=== PATIENT | female | born 1990 | race Caucasian/White ===

== ENCOUNTER 2023-08-29 00:24 | Emergency (ER) | payer OTHER, SELFPAY ==
[2023-08-29 00:25] VITALS: BP 147/99
[2023-08-29 01:15] VITALS: BMI 36.1
[2023-08-29 01:26] VITALS: BP 128/90
[2023-08-29 01:47] LABS: % Basophils 0.7 % (0-2); % Eosinophils 3.1 % (0-6); % Immature Granulocytes 0.4 % (0-0.5); % Monocytes 7.8 % (1.7-9.3); Absolute Basophils 0.1 10^3/uL (0-0.2); Absolute Eosinophils 0.4 10^3/uL (0-0.7); Absolute Immature Granulocytes 0.1 10^3/uL (0-0.05); Absolute Lymphocytes 3.3 10^3/uL (1.2-3.4); Absolute Monocytes 0.9 10^3/uL (0.1-0.6); Absolute Neutrophils 7.1 10^3/uL (1.4-6.5); Hematocrit 36.7 % (37.0-47.0); Hemoglobin 12.5 g/dL (12.0-16.0); Mean Corp Hgb Conc. 34.1 g/dL (33.0-37.0); Mean Corpuscular Hgb 27.5 pg (27.0-31.0); Mean Corpuscular Volume 80.7 fL (81.0-99.0); Nucleated Red Blood Cells % 0 %; Platelet Count 350 10^3/uL (130-400); Red Blood Cell Count 4.55 10^6/uL (4.20-5.40); Red Cell Dist. Width 14.1 % (11.5-14.5); White Blood Cell Count 11.8 10^3/uL (4.8-10.8)
--- NOTE | 2023-08-29 01:56 | ED.GENMED ---
History of Present Illness
General
Chief Complaint: Fainting/Passed Out
Source: patient
Exam Limitations: none
Time Seen by Provider: 08/29/23 01:45
Travel History
Have you had any contact with someone who has COVID-19?: No
Do you have any symptoms of coronavirus? Fever > 100 degrees, chills, cough, shortness of breath, sore throat, loss of taste or smell, muscle aches, or headache?: No
History of Present Illness
History of Present Illness:
This is a 33 year old female that comes in with c/o syncope. States that she was leaning over the sink washing her hair and she felt like she was going to pass out. State that she told them to get her a chair and she went back into the chair and
passed out. States that she came around in a few seconds and she went to the [employer]. States that for the past 3 weeks she has had tingling in her hands and feet but she feels that recently this has been constant. States that she feels dizzy. Denies
any fever, chills, chest pain, SOB, abd pain, nausea, vomiting, diarrhea, headache, urinary burning.
Past History
Past History
ED Past Medical History: Arrthythmia (Palpitations), GERD, Psychiatric (Anxiety, Bipolar) and Other (Migraine headache, Right patella dislocation, Migraines, Palpitations )
ED Past Surgical History: Gynecological (LAP for endometriosis), Orthopedic (Right wrist fracture repair) and Tonsilectomy
Social History
Tobacco: Vaping
Alcohol: None
Drug: None
Personal:
Living: with family
Employment: Employed
Family History
Family History: Other (Noncontributory)
Review of Systems
Review of Systems
All Other Systems: ROS reviewed and negative except as documented in HPI and ROS
Constitutional: Reports no symptoms; Denies fever or chills
EENT: Reports no symptoms
Respiratory: Reports no symptoms; Denies cough or trouble breathing
Cardiac: Reports no symptoms; Denies chest pain
ABD/GI: Reports no symptoms; Denies abdominal pain, nausea, vomiting or diarrhea
: Reports no symptoms; Denies dysuria, frequency or urgency
Musculoskeletal: Reports no symptoms
Skin: Reports no symptoms
Neurological: Reports dizzy; Denies headache
Psychiatric: Reports no symptoms
Phy Exam
General Physical Exam
General Presentation: well appearing and no apparent distress
General age: appears stated age
General Skin: warm and dry
General Habitus: normal
General Mental: alert
General Hydration: dry mucous membranes
ENT Exam
ENT Exam: TM's normal, pharynx normal and neck supple
Eye Exam
Eye Exam: EOMI
Cardiovascular Exam
Cardiovascular Exam: regular rate/rhythm, no edema, no murmur and normal peripheral pulses
Pulmonary Exam
Pulmonary Exam: lungs clear, no respiratory distress, no rales, chest non tender, no crackles, no rhonchi, no wheezing and no cough
Gastrointestinal Exam
Gastrointestinal Exam: non tender, soft, no organomegaly, no pulsatile mass, non distended and other (Hypoactive bowel sounds)
Musculoskeletal Exam
Musculoskeletal Exam: full ROM and no edema
Skin Exam
Skin Exam: normal color, warm/dry, no rash and no petechia
Psychiatric Exam
Psychiatric Exam: normal mood/affect
Course
Orders/Labs/Results
Orders:
Orders
08/29/23 00:40
Electrocardiogram (*1) Urgent
Reason for Study: Syncope
EKG- Treatment ONCE
08/29/23 01:08
Test Result ONCE
08/29/23 01:41
Complete Blood Count/With Diff Urgent
Comprehensive Metabolic Panel Urgent
HCG, Serum Qualitative Screen Urgent
08/29/23 01:55
Orthostatic VS- Treatment ONCE
0.9% Sodium Chloride 1000 ml [Nss] 1,000 ml IV BOLUS
08/29/23 01:56
CT Head W/o Iv Contrast Urgent
Comment:
Reason For Exam: Dizziness,
08/29/23 01:59
Urinalysis Reflex To Culture Urgent
08/29/23 02:05
Electrocardiogram (*1) Urgent
Reason for Study: Syncope
EKG- Treatment ONCE
Abnormal Lab Results
08/29/23
01:41
WBC 11.8 H 10^3/uL
(4.8-10.8)
Hct 36.7 L %
(37.0-47.0)
MCV 80.7 L fL
(81.0-99.0)
Abs Immat Gran (auto) 0.1 H 10^3/uL
(0-0.05)
Absolute Neuts (auto) 7.1 H 10^3/uL
(1.4-6.5)
Absolute Monos (auto) 0.9 H 10^3/uL
(0.1-0.6)
Total Protein 6.1 L g/dl
(6.3-8.2)
08/29/23 01:41
08/29/23 01:41
WBC very slightly elevated. HCG negative.
Vital Signs
Initial and Last Documented VS:
Initial Vital Signs
Temp Pulse Resp BP Pulse Ox
98.6 F 107 18 147/99 100
08/29/23 00:25 08/29/23 00:25 08/29/23 00:25 08/29/23 00:25 08/29/23 00:25
Last Documented Vital Signs
Temp Pulse Resp BP Pulse Ox
98.6 F 86 20 128/90 97
08/29/23 00:25 08/29/23 01:26 08/29/23 01:26 08/29/23 01:26 08/29/23 01:26
MDM/Problems Addressed
Differential Diagnosis Includes:
Dehydration, Anxiety
MDM/Problems Addressed:
This is a 33 year old female that comes in with c/o syncope and tingling in the hands and feet. States that she was leaning over washing her hair in the sink and she felt like she was going to pass out. State that they got her a chair and she passed
out for a few seconds. State that she was dizzy and hat this tingling in her hands and feet for the past 3 weeks but was constant tonight.
Will check labs and CT head. Give IV fluids
Back into see patient. Explained that her WBC are very slightly elevated and her other labs are normal. Patient CT of the head is normal and she did not tilt with Orthostatics. Encouraged patient to increase her water intake. Follow up with the
family doctor. Return with any concerns
Chronic conditions affecting care: Psychiatric illness
Acute Exacerbation and/or Progression of Chronic Illness: Psychiatric illness
*Radiology
Radiology exam reviewed: radiology read reviewed (CT head night hawk- No acute intracranial hemorrhage. No evidence of acute infarct. Ventricles are normal without hydrocephalus. visualized paranasal sinuses and mastoids are clear. No calvarial
lesion. )
*Pulse Oximetry
Patient hypoxic: no
*Brass Finisher Interpretation
Rate: normal
Heart Rate: 80
Rhythm: sinus
*Critical Care Note
Total Time (30-74mins, 75-104mins- exclusive of procedures): Not Applicable
ED Attending Note
-
Portions of this chart may have been created with voice recognition software.� Occasional wrong word or��sound alike� substitutions may have occurred due to the inherent limitations of voice recognition software.
Discharge Plan
Departure
Patient Disposition: Home (Routine Discharge)
Date of Disposition: 08/29/23
Time of Disposition: 02:57
Patient with high blood pressure during this ER visit?: Yes
Condition: Good
Covid-19: Not Applicable
Discharge Problem:
Syncope
Instructions: Syncope (Fainting) (DC), BLOOD PRESSURE
Prescriptions:
No Action
lamotrigine [Lamictal] 100 MG tablet
100 mg PO DAILY
aspirin 81 MG tablet,chewable
324 mg PO NOW
ibuprofen 600 mg tablet
600 mg PO QID PRN (Reason: fever or pain) Qty: 20 0RF
sertraline [Zoloft] 50 mg Tablet
50 mg PO DAILY
topiramate [Topamax] 50 mg Tablet
50 mg PO BID
Vraylar
1.5 mg PO Q48H
lisdexamfetamine
50 mg PO DAILY
Referrals:
Fide Yost CRNP [Family Provider] - Call in 1-3 days for appt
Activity Restrictions/Additional Instructions:
As discussed, your blood work shows that your White blood cell count is very slightly elevated. Your other labs are normal. Your CT of the head is normal and your BP and pulse did not change with any change in position. Please increase your water
intake to 8-8oz glasses daily. Follow up with the family doctor for recheck. IF YOU HAVE ANY OTHER CONCERNS PLEASE RETURN TO THE EMERGENCY ROOM .
Interventions
Interventions:
*Risk Screen - Suicide Last Done: 08/29/23 00:25
*General Assessment Last Done: 08/29/23 00:25
*Neglect/Abuse Screening Last Done: 08/29/23 00:25
ED- Fall Risk Assessment Last Done: 08/29/23 00:25
*ED COVID-19 Vaccine History Last Done: 08/29/23 00:25
ED- Cardiac Assessment Last Done: 08/29/23 01:26
ED- Neurological Assessment Last Done: 08/29/23 01:26
[2023-08-29] MEDS: NSS 1000 IV (02:00)
[2023-08-29 02:04] VITALS: BP 129/90; BP 135/92; BP 138/86; PULSE 80; PULSE 86
[2023-08-29 02:07] LABS: HCG, Serum Qualitative Screen Negative
[2023-08-29 02:10] LABS: ALT (SGPT) 13 U/L (0-35); AST (SGOT) 19 U/L (14-36); Albumin 3.6 g/dl (3.5-5.0); Alkaline Phosphatase 66 U/L (38-126); Blood Urea Nitrogen 16 mg/dl (7-17); Calcium 9.2 mg/dl (8.4-10.2); Carbon Dioxide 22 mmol/L (22-30); Chloride 107 mmol/L (98-107); Estimated Creatinine Clearance > 125 ml/min; Glucose 96 mg/dl (70-99); Potassium 3.9 mmol/L (3.5-5.1); Sodium 140 mmol/L (135-145); Total Bilirubin 0.4 mg/dl (0.2-1.3); Total Protein 6.1 g/dl (6.3-8.2); eGFR > 60.00
[2023-08-29 03:11] VITALS: BP 120/74
[2023-08-29 03:37] LABS: Urine Albumin Negative (Neg - Trace); Urine Bilirubin Negative (Negative); Urine Character Slightly Cloudy (Clear); Urine Color Yellow; Urine Glucose Negative (Negative); Urine Ketone Negative (Negative); Urine Leukocyte Trace (Negative); Urine Nitrite Negative (Negative); Urine Occult Blood 4+ (Negative); Urine Specific Gravity 1.015 (<1.030); Urine Urobilinogen Negative (Neg - 1+)
[2023-08-29 03:52] LABS: Urine Bacteria Many (Negative); Urine Squamous Cell >30 /LPF (Few); Urine White Cell 70-80 /HPF (0-5)
== END 2023-08-29 03:47 | disposition home or self-care (01) ==
LOC: EMR 00:24
PROVIDERS: Clinical Nurse Specialist Family Health; EMERGENCY PHYSICIAN Student in an Organized Health Care Education/Training Program; FAMILY PHYSICIAN Nurse Practitioner
DX: R55 Syncope and collapse (principal); R20.2 Paresthesia of skin; R42 Dizziness and giddiness; R03.0 Elevated blood-pressure reading, without diagnosis of hypertension; D72.829 Elevated white blood cell count, unspecified; F17.290 Nicotine dependence, other tobacco product, uncomplicated
CPT/HCPCS: 99285; 96360; 70450; 80053; 81003; 81015; 84703; 85025; 87086; 93005

== ENCOUNTER 2023-12-03 10:49 | Emergency (ER) | payer OTHER, SELFPAY ==
[2023-12-03 11:03] VITALS: BP 160/99
[2023-12-03 11:16] LABS: % Basophils 0.8 % (0-2); % Eosinophils 3.2 % (0-6); % Immature Granulocytes 0.4 % (0-0.5); % Lymphocytes 33.8 % (20.5-51.1); % Monocytes 8.7 % (1.7-9.3); % Neutrophils 53.1 % (42.2-75.2); Absolute Basophils 0.1 10^3/uL (0-0.2); Absolute Eosinophils 0.3 10^3/uL (0-0.7); Absolute Lymphocytes 3.5 10^3/uL (1.2-3.4); Absolute Monocytes 0.9 10^3/uL (0.1-0.6); Absolute Neutrophils 5.5 10^3/uL (1.4-6.5); Hematocrit 40.4 % (37.0-47.0); Hemoglobin 13.3 g/dL (12.0-16.0); Mean Corp Hgb Conc. 32.9 g/dL (33.0-37.0); Mean Corpuscular Hgb 27.4 pg (27.0-31.0); Mean Corpuscular Volume 83.1 fL (81.0-99.0); Mean Platelet Volume 9.8 fL (7.4-10.4); Nucleated Red Blood Cells % 0 %; Platelet Count 389 10^3/uL (130-400); Red Blood Cell Count 4.86 10^6/uL (4.20-5.40); Red Cell Dist. Width 14.5 % (11.5-14.5); White Blood Cell Count 10.4 10^3/uL (4.8-10.8)
[2023-12-03 11:28] LABS: HCG, Serum Qualitative Screen Negative
[2023-12-03 11:34] LABS: ALT (SGPT) 13 U/L (0-35); AST (SGOT) 17 U/L (14-36); Albumin 4.3 g/dl (3.5-5.0); Alkaline Phosphatase 84 U/L (38-126); Blood Urea Nitrogen 14 mg/dl (7-17); Calcium 9.3 mg/dl (8.4-10.2); Carbon Dioxide 24 mmol/L (22-30); Chloride 108 mmol/L (98-107); Glucose 95 mg/dl (70-99); Potassium 3.9 mmol/L (3.5-5.1); Sodium 140 mmol/L (135-145); Total Bilirubin 0.3 mg/dl (0.2-1.3); Total Protein 7.1 g/dl (6.3-8.2); eGFR > 60.00
[2023-12-03 12:04] VITALS: BP 144/77
--- NOTE | 2023-12-03 12:51 | ED.GENMED ---
History of Present Illness
General
Chief Complaint: Seizure
Time Seen by Provider: 12/03/23 12:33
Travel History
Have you had any contact with someone who has COVID-19?: No
Do you have any symptoms of coronavirus? Fever > 100 degrees, chills, cough, shortness of breath, sore throat, loss of taste or smell, muscle aches, or headache?: No
History of Present Illness
History of Present Illness:
33-year-old female history of bipolar disorder, anxiety, migraines presenting with concerns for visual hallucinations and 'generalized convulsions' last night. Patient states that last night she was going to bed around 1 AM when she was laying in
her bed with her eyes open started having visual hallucinations described as a circus. Patient states that afterward she had generalized convulsions lasting approximately 20 minutes. Patient states that then she 'went out' and woke up at 6 AM.
Patient states her was asleep next to her but was unable to move to wake him up. Patient denies biting her tongue or any incontinence. Patient denies history of seizure. Patient states that today she has overall generalized fatigue but no
other complaints. Patient denies fever, chills, cough, congestion, chest pain, shortness of breath, numbness, weakness, tingling, headache, or visual changes. Patient states that she has similar episode 2 months ago for which she was seen here in
the ER, diagnosed with syncope and discharged. Patient states that she has a appointment with [facility] at the end of the month. LMP 1 week ago. Patient states that she is on Vraylar, Topamax for migraines, Zoloft and has not had recent
changes in medications. Patient denies any alcohol use.
Past History
Past History
ED Past Medical History: Arrthythmia (Palpitations), GERD, Psychiatric (Anxiety, Bipolar) and Other (Migraine headache, Right patella dislocation, Migraines, Palpitations )
ED Past Surgical History: Gynecological (LAP for endometriosis), Orthopedic (Right wrist fracture repair) and Tonsilectomy
Social History
Tobacco: Vaping
Alcohol: None
Drug: None
Personal:
Living: with family
Employment: Employed
Family History
Family History: Other (Noncontributory)
Phy Exam
Physical Exam
Physical Exam:
General: Alert, no acute distress
Head: NCAT
Eyes: clear conjunctiva, PERRLA, EOMI
Neck: supple
Cardiac: regular rate and rhythm, no murmur
Lungs: clear to auscultation bilaterally. No wheezes, rales, or rhonchi. Speaking full unlabored sentences. No respiratory distress.
Abdomen: soft, nondistended nontender. No rebound or guarding.
MSK: no lower extremity edema bilaterally. No deformity
Skin: warm, dry
Neuro: Alert and oriented x3. Cranial nerves II through XII grossly intact. No pronator drift bilateral upper and lower extremities. 5 out of 5 strength bilateral upper and lower extremities. Normal finger-nose. Sensation intact.
Course
Orders/Labs/Results
Orders:
Orders
12/03/23 11:06
Test Result ONCE
12/03/23 11:09
Complete Blood Count/With Diff Urgent
Comprehensive Metabolic Panel Urgent
HCG, Serum Qualitative Screen Urgent
12/03/23 12:49
CT Head W/o Iv Contrast Urgent
Comment:
Reason For Exam: possible seizure
Abnormal Lab Results
12/03/23
11:09
MCHC 32.9 L g/dL
(33.0-37.0)
Absolute Lymphs (auto) 3.5 H 10^3/uL
(1.2-3.4)
Absolute Monos (auto) 0.9 H 10^3/uL
(0.1-0.6)
Chloride 108 H mmol/L
(98-107)
12/03/23 11:09
12/03/23 11:09
Vital Signs
Initial and Last Documented VS:
Initial Vital Signs
Temp Pulse Resp BP Pulse Ox
99.0 F 81 18 160/99 99
12/03/23 11:03 12/03/23 11:03 12/03/23 11:03 12/03/23 11:03 12/03/23 11:03
Last Documented Vital Signs
Temp Pulse Resp BP Pulse Ox
99.0 F 78 18 126/87 98
12/03/23 11:03 12/03/23 17:10 12/03/23 17:10 12/03/23 17:10 12/03/23 17:10
MDM/Problems Addressed
MDM/Problems Addressed:
Patient presents to the Emergency Department with ___visual hallucinations, generalized shaking
Number and Complexity of Problems Addressed at the Encounter
� Chronic conditions affecting care:
� Acute Exacerbation and/or Progression of Chronic Illness:
� Differential Diagnosis includes: seizure, psychiatric illness, fever, electrolyte abnormality
Amount and/or Complexity of Data to be Reviewed and Analyzed
� I performed an independent evaluation of and my interpretation is:
EKG:
CT:
Xrays:
Laboratory Studies: no anemia, hyponatremia or electrolyte abnormality, WBC 10.4 with no left shift
Other:
� Review of other/old records reveals: Seen in August 2023 for syncope, negative CT head/labs at time, discharged
� Clinical information was obtained by an independent historian:
� Prescriptions/Medications Considered but not given:
� Further testing considered but not performed:
Risk of Complications and/or Morbidity or Mortality of Patient Management
� Social Determinants of health affecting care:
� Discussion with other providers (PCP, Hospitalists, Consultants, etc):
� Escalation of care including admission/observation vs risk of discharge considered: 33-year-old female history of bipolar, asthma presenting with hallucinations described as seeing a circus last night while laying in bed trying to go to sleep.
Patient states that she had generalized shaking for 20 minutes and then woke up at 6 AM. No biting tongue or incontinence. Here in ER patient was neurologically intact no focal deficits. Labs unremarkable, CT head unremarkable. Vitals stable.
Patient states she has a appointment with neurologist at the end of the month. Will discharge with neurology follow-up
*Critical Care Note
Total Time (30-74mins, 75-104mins- exclusive of procedures): Not Applicable
ED Attending Note
-
Portions of this chart may have been created with voice recognition software.� Occasional wrong word or��sound alike� substitutions may have occurred due to the inherent limitations of voice recognition software.
Discharge Plan
Departure
Patient Disposition: Home (Routine Discharge)
Date of Disposition: 12/03/23
Time of Disposition: 16:48
Patient with high blood pressure during this ER visit?: Yes
Discharge Problem:
Hallucination
Instructions: BLOOD PRESSURE
Prescriptions:
No Action
lamotrigine [Lamictal] 100 MG tablet
100 mg PO DAILY
aspirin 81 MG tablet,chewable
324 mg PO NOW
ibuprofen 600 mg tablet
600 mg PO QID PRN (Reason: fever or pain) Qty: 20 0RF
sertraline [Zoloft] 50 mg Tablet
50 mg PO DAILY
topiramate [Topamax] 50 mg Tablet
50 mg PO BID
Vraylar
1.5 mg PO Q48H
lisdexamfetamine
50 mg PO DAILY
Referrals:
Manish Pedraza MD [Active] -
Fide Yost CRNP [Family Provider] -
Activity Restrictions/Additional Instructions:
Follow-up with neurology as scheduled
Return to the emergency department for numbness, weakness, tingling, slurred speech or new/worsening symptoms
Interventions
Interventions:
*Risk Screen - Suicide Last Done: 12/03/23 11:05
*General Assessment Last Done: 12/03/23 11:05
*Neglect/Abuse Screening Last Done: 12/03/23 11:05
ED- Fall Risk Assessment Last Done: 12/03/23 17:13
*ED COVID-19 Vaccine History Last Done: 12/03/23 17:13
*Nursing Disposition Last Done: 12/03/23 17:13
ED- Cardiac Assessment Last Done: 12/03/23 12:24
ED- Neurological Assessment Last Done: 12/03/23 12:24
ED- Pulmonary Assessment Last Done: 12/03/23 12:24
Discharge Date and Time
Discharge Date/Time: 12/03/23 17:14
Print Language: ALBANIAN
[2023-12-03 13:00] VITALS: BP 104/60
[2023-12-03 14:00] VITALS: BP 116/75
[2023-12-03 17:10] VITALS: BP 126/87
== END 2023-12-03 17:14 | disposition home or self-care (01) ==
LOC: EMR 10:49
PROVIDERS: Emergency Medicine; EMERGENCY PHYSICIAN Emergency Medicine; FAMILY PHYSICIAN Nurse Practitioner
DX: R44.1 Visual hallucinations (principal); F17.290 Nicotine dependence, other tobacco product, uncomplicated; R56.9 Unspecified convulsions; R25.1 Tremor, unspecified; F31.9 Bipolar disorder, unspecified; J45.909 Unspecified asthma, uncomplicated
CPT/HCPCS: 99284; 70450; 80053; 84703; 85025

== ENCOUNTER 2023-12-06 23:29 | Emergency (ER) | payer OTHER, SELFPAY ==
[2023-12-06 23:41] VITALS: BP 130/88
[2023-12-06 23:42] VITALS: BP 130/88
--- NOTE | 2023-12-06 23:55 | ED.GENMED ---
History of Present Illness
General
Chief Complaint: Seizure
Source: patient and ambulance crew
Exam Limitations: none
Time Seen by Provider: 12/06/23 23:55
Nursing documentation reviewed up to this point in time: agreed with
Travel History
Have you had any contact with someone who has COVID-19?: Unable to Answer
Do you have any symptoms of coronavirus? Fever > 100 degrees, chills, cough, shortness of breath, sore throat, loss of taste or smell, muscle aches, or headache?: Unable to Answer
History of Present Illness
History of Present Illness:
Pleasant 33-year-old female with recent history of seizures. Presents via EMS after having a partial seizure this evening. Patient was recently seen in the emergency department and discharged to home after having hallucinations. Patient went home
and followed up with [facility]. She was diagnosed with seizures and given Valium. Patient states that she has not had any EEG or further testing other than the CT scans ordered in the emergency department due to insurance reasons.
At time of arrival, patient was somnolent but answering questions appropriately. She suffered no trauma during her seizure as she was lying on the couch at the time. She states that the seizure was witnessed by family.
Past History
Past History
ED Past Medical History: Arrthythmia (Palpitations), GERD, Psychiatric (Anxiety, Bipolar) and Other (Migraine headache, Right patella dislocation, Migraines, Palpitations )
ED Past Surgical History: Gynecological (LAP for endometriosis), Orthopedic (Right wrist fracture repair) and Tonsilectomy
Social History
Tobacco: Vaping
Alcohol: None
Drug: None
Personal:
Living: with family
Employment: Employed
Family History
Family History: Other (Noncontributory)
Review of Systems
Review of Systems
Allergies reviewed?: Yes
All Other Systems: ROS reviewed and negative except as documented in HPI and ROS
Constitutional: Reports no symptoms
EENT: Reports no symptoms
Respiratory: Reports no symptoms
Cardiac: Reports no symptoms
ABD/GI: Reports no symptoms
: Reports no symptoms
Musculoskeletal: Reports no symptoms
Skin: Reports no symptoms
Neurological: Reports no symptoms
Endocrine: Reports no symptoms
Hematologic/Lymphatic: Reports no symptoms
Psychiatric: Reports no symptoms
Phy Exam
General Physical Exam
General Presentation: well appearing and no apparent distress
General Skin: warm and dry
General Habitus: normal
General Mental: alert
General Hydration: appears well hydrated
ENT Exam
ENT Exam: EOMI, pharynx normal, neck supple and normocephalic
Eye Exam
Eye Exam: PERRL, cornea clear and conjunctiva normal
Cardiovascular Exam
Cardiovascular Exam: regular rate/rhythm, no edema, no murmur and normal peripheral pulses
Pulmonary Exam
Pulmonary Exam: lungs clear, no respiratory distress, no rales, no crackles, no rhonchi, no stridor, no wheezing and no cough
Gastrointestinal Exam
Gastrointestinal Exam: normal bowel sounds, non tender, soft, no organomegaly, no pulsatile mass and non distended
Neurological Exam
Neurological Exam: oriented x3, CN II-XII intact and other (somnulent)
Musculoskeletal Exam
Musculoskeletal Exam: full ROM and no edema
Skin Exam
Skin Exam: normal color, warm/dry, no rash and no petechia
Psychiatric Exam
Psychiatric Exam: normal mood/affect
Course
Orders/Labs/Results
Orders:
Orders
12/06/23 23:38
EKG [Electrocardiogram (*1)] Urgent
Reason for Study: Fatigue / Weakness
12/06/23 23:39
EKG- Treatment ONCE
12/07/23 00:15
Test Result ONCE
12/07/23 00:16
Complete Blood Count/With Diff Urgent
Comprehensive Metabolic Panel Urgent
HCG, Serum Qualitative Screen Urgent
12/07/23 01:12
Diazepam [Valium] 5 mg PO NOW STA
Abnormal Lab Results
12/07/23
00:16
WBC 13.8 H 10^3/uL
(4.8-10.8)
Abs Immat Gran (auto) 0.1 H 10^3/uL
(0-0.05)
Absolute Neuts (auto) 6.7 H 10^3/uL
(1.4-6.5)
Absolute Lymphs (auto) 5.3 H 10^3/uL
(1.2-3.4)
Absolute Monos (auto) 1.2 H 10^3/uL
(0.1-0.6)
Chloride 109 H mmol/L
(98-107)
Carbon Dioxide 21 L mmol/L
(22-30)
Glucose 110 H mg/dl
(70-99)
12/07/23 00:16
12/07/23 00:16
Vital Signs
Initial and Last Documented VS:
Initial Vital Signs
Pulse Resp BP Pulse Ox
119 18 130/88 100
12/06/23 23:41 12/06/23 23:41 12/06/23 23:41 12/06/23 23:41
Last Documented Vital Signs
Pulse Resp BP Pulse Ox
74 20 109/49 95
12/07/23 04:48 12/07/23 04:48 12/07/23 04:48 12/07/23 04:48
MDM/Problems Addressed
Differential Diagnosis Includes:
Seizure versus pseudoseizure, hypoglycemia, migraine
MDM/Problems Addressed:
31-year-old female presents via EMS after reported seizure. Was seen at [facility] and diagnosed with seizures 3 days ago. Has oral Valium but did not get to take it tonight has been started on Lamictal and is on her third day of this
medication.
*Radiology
Radiology exam reviewed: other (Previous CT scans reviewed)
*Pulse Oximetry
Patient hypoxic: no
*EKG
Interpreted by ED Provider?: Yes
EKG Intrepretation Date: 12/07/23
Heart Rate: 108
Rate: tachycardiac
Rhythm: sinus
[place]: normal axis
Interval: normal interval
QRS Pattern: normal QRS
Ischemia: non-specific ST changes
*Critical Care Note
Total Time (30-74mins, 75-104mins- exclusive of procedures): Not Applicable
Update Note
Update Note:
Patient was awakened and is feeling better. She is calling her for discharge. She will continue her seizure medications.
ED Attending Note
-
Portions of this chart may have been created with voice recognition software.� Occasional wrong word or��sound alike� substitutions may have occurred due to the inherent limitations of voice recognition software.
Discharge Plan
Departure
Patient Disposition: Home (Routine Discharge)
Date of Disposition: 12/07/23
Time of Disposition: 04:51
Patient with high blood pressure during this ER visit?: No
Condition: Good
Discharge Problem:
Seizure
Instructions: Seizures, Adult (DC)
Prescriptions:
No Action
sertraline [Zoloft] 50 mg Tablet
50 mg PO DAILY
topiramate [Topamax] 50 mg Tablet
50 mg PO BID
Vraylar
1.5 mg PO Q48H
lamotrigine [Lamictal] 25 mg Tablet
25 mg PO DAILY
dextroamphetamine-amphetamine [Adderall XR] 20 mg Capsule,Extended Release 24hr
20 mg PO DAILY
diazepam [Valium] 5 mg Tablet
5 mg PO PRN (Reason: aura)
Referrals:
PRIVATE,PHYSICIAN [Family Provider] -
Activity Restrictions/Additional Instructions:
It was a pleasure meeting you and taking part in your care. We hope for your continued healing and wellness.
Please read discharge instructions in their entirety. However, they are for general education and may not describe your exact diagnosis at discharge. Information on your ER visit and medical conditions were discussed with you along with appropriate
follow up information...
If indicated, please take your medications as instructed and indicated on discharge paperwork.
Please schedule a follow up appointment as directed. Call to schedule an appointment
Please return to the emergency department with ANY change in, persisting, or worsening of symptoms. If any of your symptoms do not improve, or persist, or become more severe within 6-12 hours, please return to the emergency department for further
care.
Please return to the emergency department if you develop a headache, neck pain/stiffness, fever greater than 100.4F, chest pain, shortness of breath, persistent nausea, vomiting, slurred speech, difficulty walking, numbness/tingling, weakness, signs
of infection or any other symptoms that are worrisome to you.
If you have any questions or concerns please do not hesitate to call the Hospital at .
Interventions
Interventions:
*Risk Screen - Suicide Last Done: 12/06/23 23:41
*General Assessment Last Done: 12/06/23 23:41
*Neglect/Abuse Screening Last Done: 12/06/23 23:41
*Nursing Disposition Last Done: 12/07/23 05:47
ED- Cardiac Assessment Last Done: 12/07/23 01:07
ED- Neurological Assessment Last Done: 12/07/23 01:07
ED- Pulmonary Assessment Last Done: 12/07/23 01:07
Discharge Date and Time
Discharge Date/Time: 12/07/23 05:48
Print Language: SCOTTISH
[2023-12-07] VITALS: BP 127/80
[2023-12-07 00:35] LABS: HCG, Serum Qualitative Screen Negative
[2023-12-07 00:41] LABS: ALT (SGPT) 12 U/L (0-35); AST (SGOT) 18 U/L (14-36); Albumin 4.2 g/dl (3.5-5.0); Alkaline Phosphatase 78 U/L (38-126); Blood Urea Nitrogen 13 mg/dl (7-17); Calcium 9.7 mg/dl (8.4-10.2); Carbon Dioxide 21 mmol/L (22-30); Chloride 109 mmol/L (98-107); Glucose 110 mg/dl (70-99); Potassium 3.8 mmol/L (3.5-5.1); Sodium 140 mmol/L (135-145); Total Bilirubin 0.3 mg/dl (0.2-1.3); eGFR > 60.00
[2023-12-07 00:46] LABS: % Basophils 0.6 % (0-2); % Eosinophils 3.6 % (0-6); % Immature Granulocytes 0.4 % (0-0.5); % Lymphocytes 38.6 % (20.5-51.1); % Monocytes 8.5 % (1.7-9.3); % Neutrophils 48.3 % (42.2-75.2); Absolute Basophils 0.1 10^3/uL (0-0.2); Absolute Eosinophils 0.5 10^3/uL (0-0.7); Absolute Immature Granulocytes 0.1 10^3/uL (0-0.05); Absolute Lymphocytes 5.3 10^3/uL (1.2-3.4); Absolute Monocytes 1.2 10^3/uL (0.1-0.6); Absolute Neutrophils 6.7 10^3/uL (1.4-6.5); Hematocrit 39.3 % (37.0-47.0); Hemoglobin 13.1 g/dL (12.0-16.0); Mean Corp Hgb Conc. 33.3 g/dL (33.0-37.0); Mean Corpuscular Hgb 27.4 pg (27.0-31.0); Mean Corpuscular Volume 82.2 fL (81.0-99.0); Mean Platelet Volume 10.4 fL (7.4-10.4); Nucleated Red Blood Cells % 0 %; Platelet Count 397 10^3/uL (130-400); Red Blood Cell Count 4.78 10^6/uL (4.20-5.40); Red Cell Dist. Width 14.4 % (11.5-14.5); White Blood Cell Count 13.8 10^3/uL (4.8-10.8)
[2023-12-07 01:00] VITALS: BP 117/69
[2023-12-07] MEDS: VALIUM 5 MG PO (01:16)
[2023-12-07 02:00] VITALS: BP 116/77
[2023-12-07 03:00] VITALS: BP 102/90
[2023-12-07 04:00] VITALS: BP 102/68
[2023-12-07 04:48] VITALS: BP 109/49
== END 2023-12-07 05:48 | disposition home or self-care (01) ==
LOC: EMR 23:29
PROVIDERS: EMERGENCY PHYSICIAN Student in an Organized Health Care Education/Training Program
DX: G40.909 Epilepsy, unspecified, not intractable, without status epilepticus (principal); R00.2 Palpitations; K21.9 Gastro-esophageal reflux disease without esophagitis; F41.8 Other specified anxiety disorders; F31.9 Bipolar disorder, unspecified; F17.290 Nicotine dependence, other tobacco product, uncomplicated
CPT/HCPCS: 99283; 80053; 84703; 85025; 93005

== ENCOUNTER → 2024-01-09 11:16 | Outpatient (REF) | payer OTHER, SELFPAY ==
[2024-01-09 11:25] LABS: % Basophils 0.4 % (0-2); % Eosinophils 2.8 % (0-6); % Immature Granulocytes 0.2 % (0-0.5); % Lymphocytes 34.4 % (20.5-51.1); % Monocytes 7.1 % (1.7-9.3); % Neutrophils 55.1 % (42.2-75.2); Absolute Eosinophils 0.3 10^3/uL (0-0.7); Absolute Lymphocytes 3.4 10^3/uL (1.2-3.4); Absolute Monocytes 0.7 10^3/uL (0.1-0.6); Absolute Neutrophils 5.4 10^3/uL (1.4-6.5); Hematocrit 40.9 % (37.0-47.0); Hemoglobin 13.3 g/dL (12.0-16.0); Mean Corp Hgb Conc. 32.5 g/dL (33.0-37.0); Mean Corpuscular Hgb 27.3 pg (27.0-31.0); Mean Corpuscular Volume 83.8 fL (81.0-99.0); Mean Platelet Volume 9.6 fL (7.4-10.4); Platelet Count 370 10^3/uL (130-400); Red Blood Cell Count 4.88 10^6/uL (4.20-5.40); Red Cell Dist. Width 14.4 % (11.5-14.5); White Blood Cell Count 9.8 10^3/uL (4.8-10.8)
== END ==
LOC: OIDL 11:16
PROVIDERS: ATTENDING PHYSICIAN Internal Medicine Hematology & Oncology
DX: D50.8 Other iron deficiency anemias (principal)
CPT/HCPCS: 85025

== ENCOUNTER → 2024-02-13 16:51 | Outpatient (REF) | payer OTHER, SELFPAY | LOC: HWRAD 16:51 | PROVIDERS: ATTENDING PHYSICIAN Nurse Practitioner Family; FAMILY PHYSICIAN Nurse Practitioner | DX: R10.9 Unspecified abdominal pain (principal) | CPT/HCPCS: 74018 ==

== ENCOUNTER → 2024-09-29 09:42 | Outpatient (REF) | payer OTHER, SELFPAY ==
[2024-09-29 12:30] LABS: % Basophils 0.5 % (0-2); % Eosinophils 3.5 % (0-6); % Immature Granulocytes 0.4 % (0-0.5); % Lymphocytes 28.5 % (20.5-51.1); % Monocytes 8.1 % (1.7-9.3); Absolute Basophils 0.1 10^3/uL (0-0.2); Absolute Eosinophils 0.4 10^3/uL (0-0.7); Absolute Immature Granulocytes 0.1 10^3/uL (0-0.05); Absolute Lymphocytes 3.2 10^3/uL (1.2-3.4); Absolute Monocytes 0.9 10^3/uL (0.1-0.6); Absolute Neutrophils 6.6 10^3/uL (1.4-6.5); Hematocrit 45.4 % (37.0-47.0); Hemoglobin 14.4 g/dL (12.0-16.0); Mean Corp Hgb Conc. 31.7 g/dL (33.0-37.0); Mean Corpuscular Hgb 27.6 pg (27.0-31.0); Mean Platelet Volume 10.1 fL (7.4-10.4); Nucleated Red Blood Cells % 0 %; Platelet Count 367 10^3/uL (130-400); Red Blood Cell Count 5.22 10^6/uL (4.20-5.40); Red Cell Dist. Width 13.5 % (11.5-14.5); White Blood Cell Count 11.2 10^3/uL (4.8-10.8)
[2024-09-29 12:49] LABS: ALT (SGPT) 18 U/L (0-35); AST (SGOT) 17 U/L (14-36); Albumin 4.5 g/dl (3.5-5.0); Alkaline Phosphatase 81 U/L (38-126); Blood Urea Nitrogen 14 mg/dl (7-17); Calcium 9.4 mg/dl (8.4-10.2); Carbon Dioxide 24 mmol/L (22-30); Chloride 102 mmol/L (98-107); Glucose 97 mg/dl (70-99); Potassium 4.6 mmol/L (3.5-5.1); Sodium 138 mmol/L (135-145); Total Bilirubin 0.6 mg/dl (0.2-1.3); Total Protein 7.1 g/dl (6.3-8.2); eGFR > 60.00
[2024-09-29 13:15] LABS: TSH 1.23 uIU/ml (0.47-4.68)
[2024-09-29 13:34] LABS: Glycohemoglobin (HgbA1c) 5.3 % (4.0-5.6)
== END ==
LOC: HWLAB 09:42
PROVIDERS: ATTENDING PHYSICIAN Nurse Practitioner Family; FAMILY PHYSICIAN Nurse Practitioner
DX: F31.62 Bipolar disorder, current episode mixed, moderate (principal); F41.1 Generalized anxiety disorder; F90.0 Attention-deficit hyperactivity disorder, predominantly inattentive type
CPT/HCPCS: 36415; 80053; 83036; 84443; 85025; 93005

== ENCOUNTER 2024-12-07 21:57 | Emergency (ER) | payer OTHER, SELFPAY ==
[2024-12-07 22:06] VITALS: BP 166/105
[2024-12-07 22:52] LABS: Urine Albumin 1+ (Neg - Trace); Urine Bilirubin Negative (Negative); Urine Character Clear (Clear); Urine Color Yellow; Urine Glucose Negative (Negative); Urine Ketone Negative (Negative); Urine Leukocyte 2+ (Negative); Urine Nitrite Negative (Negative); Urine Occult Blood Negative (Negative); Urine Urobilinogen Negative (Neg - 1+)
[2024-12-07 22:59] LABS: % Basophils 0.7 % (0-2); % Eosinophils 2.8 % (0-6); % Immature Granulocytes 0.4 % (0-0.5); % Lymphocytes 29.6 % (20.5-51.1); % Monocytes 9.8 % (1.7-9.3); % Neutrophils 56.7 % (42.2-75.2); Absolute Basophils 0.1 10^3/uL (0-0.2); Absolute Eosinophils 0.3 10^3/uL (0-0.7); Absolute Immature Granulocytes 0.1 10^3/uL (0-0.05); Absolute Lymphocytes 3.4 10^3/uL (1.2-3.4); Absolute Monocytes 1.1 10^3/uL (0.1-0.6); Absolute Neutrophils 6.4 10^3/uL (1.4-6.5); Hematocrit 40.7 % (37.0-47.0); Hemoglobin 13.5 g/dL (12.0-16.0); Mean Corp Hgb Conc. 33.2 g/dL (33.0-37.0); Mean Corpuscular Volume 84.3 fL (81.0-99.0); Mean Platelet Volume 9.5 fL (7.4-10.4); Nucleated Red Blood Cells % 0 %; Platelet Count 355 10^3/uL (130-400); Red Blood Cell Count 4.83 10^6/uL (4.20-5.40); Red Cell Dist. Width 13.4 % (11.5-14.5); White Blood Cell Count 11.4 10^3/uL (4.8-10.8)
[2024-12-07 23:02] LABS: Urine Mucus Many; Urine Squamous Cell >30 /LPF (Few)
[2024-12-07 23:03] LABS: Urine Bacteria Many (Negative)
[2024-12-07 23:10] LABS: HCG, Serum Qualitative Screen Negative
[2024-12-07 23:13] LABS: ALT (SGPT) 19 U/L (0-35); AST (SGOT) 20 U/L (14-36); Albumin 4.2 g/dl (3.5-5.0); Alkaline Phosphatase 78 U/L (38-126); Blood Urea Nitrogen 13 mg/dl (7-17); Calcium 9.2 mg/dl (8.4-10.2); Carbon Dioxide 26 mmol/L (22-30); Chloride 108 mmol/L (98-107); Glucose 96 mg/dl (70-99); Potassium 3.9 mmol/L (3.5-5.1); Sodium 140 mmol/L (135-145); Total Bilirubin 0.2 mg/dl (0.2-1.3); Total Protein 7.1 g/dl (6.3-8.2); eGFR > 60.00
[2024-12-08 04:42] VITALS: BP 131/65
--- NOTE | 2024-12-08 05:06 | ED.GENMED ---
History of Present Illness
General
Chief Complaint: Abdominal Pain
Source: patient
Exam Limitations: none
Time Seen by Provider: 12/08/24 04:45
Nursing documentation reviewed up to this point in time: agreed with
History of Present Illness
History of Present Illness:
34 y/o female presents to the ER complaining of abdominal pain. She does have a history of ovarian cysts.
see update note
Past History
Past History
ED Past Medical History: Arrthythmia (Palpitations), GERD, Psychiatric (Anxiety, Bipolar) and Other (Migraine headache, Right patella dislocation, Migraines, Palpitations )
ED Past Surgical History: Gynecological (LAP for endometriosis), Orthopedic (Right wrist fracture repair) and Tonsilectomy
Social History
Tobacco: Vaping
Alcohol: None
Drug: None
Personal:
Living: with family
Employment: Employed
Family History
Family History: Other (Noncontributory)
Phy Exam
Physical Exam
Physical Exam:
see update note
unable to examine patient
Course
Orders/Labs/Results
Orders:
Orders
12/07/24 22:09
Test Result ONCE
12/07/24 22:36
Urinalysis Reflex To Culture Urgent
Date Specimen was Collected: 12/07/24
Time Specimen was Collected: 22:09
Urine Microscopic Reflex Cult Urgent
Urine Culture Urgent
MIKI Source: U
Specimen Description:
Date Specimen was Collected: 12/07/24
Time Specimen was Collected: 22:09
12/07/24 22:39
Complete Blood Count/With Diff Urgent
Comprehensive Metabolic Panel Urgent
HCG, Serum Qualitative Screen Urgent
Abnormal Lab Results
12/07/24 12/07/24
22:36 22:39
WBC 11.4 H 10^3/uL
(4.8-10.8)
Abs Immat Gran (auto) 0.1 H 10^3/uL
(0-0.05)
Absolute Monos (auto) 1.1 H 10^3/uL
(0.1-0.6)
Monocytes % 9.8 H %
(1.7-9.3)
Chloride 108 H mmol/L
(98-107)
Leukocyte Esterase Rfl 2+ A
(Negative)
Urine RBC 3-6 A /HPF
(0-2)
Urine Bacteria (Reflex) Many A
(Negative)
Urine Albumin (Reflex) 1+ A
(Neg - Trace)
12/07/24 22:39
12/07/24 22:39
Vital Signs
Initial and Last Documented VS:
Initial Vital Signs
Temp Pulse Resp BP Pulse Ox
98.4 F 105 16 166/105 100
12/07/24 22:06 12/07/24 22:06 12/07/24 22:06 12/07/24 22:06 12/07/24 22:06
Last Documented Vital Signs
Temp Pulse Resp BP Pulse Ox
98.4 F 84 16 131/65 99
12/07/24 22:06 12/08/24 04:42 12/08/24 04:42 12/08/24 04:42 12/08/24 04:42
MDM/Problems Addressed
Differential Diagnosis Includes:
UTI, ovarian cyst, ovarian torsion, diverticulitis
see update note
MDM/Problems Addressed:
see update note
Chronic conditions affecting care:
bipolar disorder, seizure disorder, ovarian cyst, asthma, migraines
*Pulse Oximetry
Patient hypoxic: no
*Critical Care Note
Total Time (30-74mins, 75-104mins- exclusive of procedures): Not Applicable
Data Reviewed
Review of Other/Old Records Reveals: Records (reviewed documentation from 12/06/23, patient seen for seizure was given dose of valium and discharged after unremarkable workup) and Discharge Summary
Source: patient
Patient Management
Escalation/DeEscalation of care consider admission/obs:
see update
Update Note
Update Note:
When I arrived to see patient, patient was not in room or bathroom. Assumed to elope without treatment. I did search bathroom and waiting room. I did attempt to call patient twice to discuss lab work and blood work.
7:15 am-- Attempted to call patient again regarding blood work and urinalysis. Left voice message. Urine culture pending.
ED Attending Note
-
Portions of this chart may have been created with voice recognition software.� Occasional wrong word or��sound alike� substitutions may have occurred due to the inherent limitations of voice recognition software.
Discharge Plan
Departure
Patient Disposition: Elopement
Date of Disposition: 12/08/24
Time of Disposition: 08:32
Discharge Problem:
Abdominal pain
Prescriptions:
No Action
sertraline [Zoloft] 50 mg Tablet
50 mg PO DAILY
topiramate [Topamax] 50 mg Tablet
50 mg PO BID
Vraylar
1.5 mg PO Q48H
lamotrigine [Lamictal] 25 mg Tablet
25 mg PO DAILY
dextroamphetamine-amphetamine [Adderall XR] 20 mg Capsule,Extended Release 24hr
20 mg PO DAILY
diazepam [Valium] 5 mg Tablet
5 mg PO PRN (Reason: aura)
Referrals:
Fide Yost CRNP [Family Provider] -
Interventions
Interventions:
*Risk Screen - Suicide Last Done: 12/07/24 22:06
*General Assessment Last Done: 12/07/24 22:06
*Neglect/Abuse Screening Last Done: 12/07/24 22:06
*ED- Fall Risk Assessment Last Done: 12/07/24 22:06
*ED COVID-19 Vaccine History Last Done: 12/07/24 22:06
*Nursing Disposition Last Done: 12/08/24 05:02
XI-Rberkq-Yhsxznjyuf Assessment Last Done: 12/08/24 02:26
Discharge Date and Time
Print Language: ARGENTINE
== END 2024-12-08 05:02 | disposition left against medical advice (07) ==
LOC: EMR 21:57
PROVIDERS: Student in an Organized Health Care Education/Training Program; EMERGENCY PHYSICIAN Student in an Organized Health Care Education/Training Program; FAMILY PHYSICIAN Nurse Practitioner
DX: R10.9 Unspecified abdominal pain (principal); G40.909 Epilepsy, unspecified, not intractable, without status epilepticus; J45.909 Unspecified asthma, uncomplicated; F17.290 Nicotine dependence, other tobacco product, uncomplicated; Z87.42 Personal history of other diseases of the female genital tract; Z53.29 Procedure and treatment not carried out because of patient's decision for other reasons
CPT/HCPCS: 99283; 80053; 81003; 81015; 84703; 85025; 87086

== ENCOUNTER 2025-02-14 23:58 | Emergency (ER) | payer BC, SELFPAY ==
[2025-02-15 00:04] VITALS: BP 161/98
[2025-02-15] MEDS: MOTRIN 600 MG PO (00:29)
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
== END 2025-02-15 01:39 | disposition home or self-care (01) ==
LOC: EMR 23:58
PROVIDERS: EMERGENCY PHYSICIAN Emergency Medicine; FAMILY PHYSICIAN Nurse Practitioner
DX: S83.004A Unspecified dislocation of right patella, initial encounter (principal); X58.XXXA Exposure to other specified factors, initial encounter; F17.290 Nicotine dependence, other tobacco product, uncomplicated
CPT/HCPCS: 29505; 99283; 73564

== ENCOUNTER 2025-02-24 05:47 | Day surgery (SDC) | payer BC, SELFPAY ==
[2025-02-24] VITALS (10 sets, daily range): BP systolic 117–152; BP diastolic 74–94; BMI 44.7
[2025-02-24] MEDS: CELEBREX 200 MG PO (06:32)
[2025-02-24] MEDS: TYLENOL 1000 MG PO (06:32)
[2025-02-24] MEDS: NORMOSOL-R/PLASMALYTE-A 1000 IV (06:33)
[2025-02-24] MEDS: SUBLIMAZE 50 MCG IV (09:16)
[2025-02-24] MEDS: SUBLIMAZE 25 MCG IV (09:34)
[2025-02-24] MEDS: ROXICODONE 5 MG PO (10:19)
== END 2025-02-24 10:46 | disposition home or self-care (01) ==
LOC: SDS 05:47
PROVIDERS: ATTENDING PHYSICIAN Specialist
DX: S83.004A Unspecified dislocation of right patella, initial encounter (principal); X58.XXXA Exposure to other specified factors, initial encounter; M22.41 Chondromalacia patellae, right knee
CPT/HCPCS: 27427; C1713; 73560; 76000; C1763

== ENCOUNTER 2025-03-05 22:02 | Emergency (ER) | payer BC, SELFPAY ==
[2025-03-05 22:35] LABS: Hematocrit 43.2 % (37.0-47.0); Hemoglobin 14.2 g/dL (12.0-16.0); Mean Corp Hgb Conc. 32.9 g/dL (33.0-37.0); Mean Corpuscular Volume 82.0 fL (81.0-99.0); Nucleated Red Blood Cells % 0 %; Platelet Count 427 10^3/uL (130-400); Red Cell Dist. Width 13.7 % (11.5-14.5)
[2025-03-05 22:50] LABS: COVID-19 Antigen Negative (Negative)
[2025-03-05 23:01] LABS: ALT (SGPT) 19 U/L (0-35); AST (SGOT) 19 U/L (14-36); Albumin 5.0 g/dl (3.5-5.0); Alkaline Phosphatase 92 U/L (38-126); Blood Urea Nitrogen 14 mg/dl (7-17); Calcium 9.8 mg/dl (8.4-10.2); Carbon Dioxide 22 mmol/L (22-30); Chloride 108 mmol/L (98-107); Glucose 113 mg/dl (70-99); Potassium 4.6 mmol/L (3.5-5.1); Sodium 141 mmol/L (135-145); Total Protein 8.1 g/dl (6.3-8.2); eGFR > 60.00
[2025-03-06 02:04] VITALS: BMI 45.0
[2025-03-06 02:07] VITALS: BP 135/92
--- NOTE | 2025-03-06 04:16 | ED.GENMED ---
History of Present Illness
General
Chief Complaint: Post Operative Problem(s)
Source: patient
Exam Limitations: none
Time Seen by Provider: 03/06/25 02:59
Nursing documentation reviewed up to this point in time: agreed with
History of Present Illness
History of Present Illness:
see MDM
Past History
Past History
ED Past Medical History: Arrthythmia (Palpitations), GERD, Psychiatric (Anxiety, Bipolar) and Other (Migraine headache, Right patella dislocation, Migraines, Palpitations )
ED Past Surgical History: Gynecological (LAP for endometriosis), Orthopedic (Right wrist fracture repair) and Tonsilectomy
Social History
Tobacco: Vaping
Alcohol: None
Drug: None
Personal:
Living: with family
Employment: Employed
Family History
Family History: Other (Noncontributory)
Review of Systems
Review of Systems
Allergies reviewed?: Yes
All Other Systems: Not applicable
Phy Exam
Physical Exam
Physical Exam:
GENERAL: Alert , in no apparent distress
EYE: pupils equal and reactive
NECK: Supple
ENT: o/p clr, mmm. No pharyngeal erythema
CARDIAC: Regular rate and rhythm .no tachycardia, no edema int he legs
LUNGS: Clear breath sounds bilaterally, no acute respiratory distress, no wheezes/rales/rhonchi
ABDOMEN: Soft, without focal tenderness, no r/g, no cvat, normal bowel sounds
NEUROLOGICAL: Alert and oriented, no focal neuro deficits
SKIN: Warm and dry, skin intact.
Multiple incision sites viewed on the right anterior knee without any erythema, dehiscence, there is sutures and Steri-Strips in place. I did did just briefly remove the ABD pads and then recover with Kerlix and Rubio wrap as it was previously
dressed,
MUSCULOSKELETAL: No edema, well perfused. neg jone's sign
Patient is wearing a knee immobilizer and has limited range of motion of the knee which she is keeping in extension without any swelling of the lower extremity
PSYCH: Normal and appropriate interaction.
Course
Orders/Labs/Results
Orders:
Orders
03/05/25 22:26
COVID-19 Antigen Urgent
Source: Nasal Swab
03/05/25 22:27
Complete Blood Count/With Diff Urgent
Comprehensive Metabolic Panel Urgent
03/06/25 03:44
CR Chest - 2 Views Urgent
Comment:
Reason For Exam: rigors, recent surgery
03/06/25 04:00
Lactic Acid Urgent
Monotest Urgent
Blood Culture Q30M
MIKI Source: Blood/Venous
Specimen Description:
03/06/25 04:01
Blood Culture Q30M
MIKI Source: Blood/Venous
Specimen Description:
03/06/25 04:10
Urinalysis Reflex To Culture Urgent
Date Specimen was Collected: 03/06/25
Time Specimen was Collected: 04:05
Urine Microscopic Reflex Cult Urgent
Abnormal Lab Results
03/05/25 03/06/25
22:27 04:10
WBC 14.5 H 10^3/uL
(4.8-10.8)
MCH 26.9 L pg
(27.0-31.0)
MCHC 32.9 L g/dL
(33.0-37.0)
Plt Count 427 H 10^3/uL
(130-400)
Abs Immat Gran (auto) 0.1 H 10^3/uL
(0-0.05)
Absolute Neuts (auto) 9.5 H 10^3/uL
(1.4-6.5)
Absolute Lymphs (auto) 3.5 H 10^3/uL
(1.2-3.4)
Absolute Monos (auto) 1.2 H 10^3/uL
(0.1-0.6)
Chloride 108 H mmol/L
(98-107)
Glucose 113 H mg/dl
(70-99)
Urine Albumin (Reflex) 2+ A
(Neg - Trace)
03/05/25 22:27
03/05/25 22:27
Vital Signs
Initial and Last Documented VS:
Initial Vital Signs
Temp Pulse Resp Pulse Ox
37.1 C 107 18 98
03/05/25 22:11 03/05/25 22:11 03/05/25 22:11 03/05/25 22:11
Last Documented Vital Signs
Temp Pulse Resp BP Pulse Ox
36.8 C 86 18 119/78 98
03/06/25 02:07 03/06/25 05:29 03/06/25 05:29 03/06/25 05:14 03/06/25 05:29
MDM/Problems Addressed
Differential Diagnosis Includes:
see MDM
MDM/Problems Addressed:
Note:
CHIEF COMPLAINT(S)
Nausea, loss of appetite, diarrhea, sweating, and shaking after recent surgery.
HISTORY OF PRESENT ILLNESS
The patient is a female who has recently undergone surgery involving a patellar implant on 02/[address] hair . Since the surgery, she has experienced persistent nausea, a lack of appetite, and diarrhea. She reported episodes of sweating ('dripping
sweat all over from like my arms everywhere') and shaking. These symptoms have been occurring off and on since the surgery but were particularly severe today, prompting her to seek emergency medical attention. The patient noted she had a slight
fever of around 99�F prior to coming in and has been managing the fever with acetaminophen. She discontinued the use of prescribed pain medication (Percocet) two to three days following surgery due to persistent symptoms. There was a single episode
of diarrhea today, and she denies frequent or particularly malodorous or watery stools.
she has had some pain behind her R knee but this is unchanged since surgery
no significant swelling, numbness, tingling, cp, sob.
PHYSICAL EXAM
- General: The patient appeared tired and unwell, with episodes of sweating and shaking.
- Musculoskeletal: Sharp pains and discomfort were reported behind the knee, but no significant swelling was noted.
- Nursing notes reviewed and vital signs reviewed.
PLAN
1. Consider obtaining blood cultures to investigate potential infection, with results to be communicated to the patient later if positive.
2. Perform urine and stool analysis if samples can be provided by the patient to determine potential gastrointestinal sources.
3. Review blood work and further assess the patients condition.
4. Consider differentials of possible sepsis, mono, flu, and review prior COVID-19 test results which were negative.
DIFFERENTIAL DIAGNOSIS
The Differential Diagnosis includes, in no particular order and is not limited to:
1. Post-surgical infection
2. Gastroenteritis
3. Sepsis
4. Deep vein thrombosis
5. Drug reaction or withdrawal
6. Viral infection (e.g., influenza, mononucleosis)
7. Blood clot or thrombosis
8. Hypoglycemia
9. Thyroid dysfunction
10. Anxiety or stress response
03/06/25 - 05:12
Patient is 10 days postop and medial patellofemoral ligament Reconstruction
With chills and some loose stools. Loose stools minimal, 1 word to at most episodes daily and not significantly watery or foul-smelling to be consistent with C. difficile. Patient says she had intermittent shaking chills earlier this evening which
is what prompted her visit here. She has not had any chills since being here. She remains afebrile and looks well. I do not see any evidence of a source of infection, she her incision site looks perfectly well-healing without any complications.
Her lungs are clear, she has no cough, her abdomen soft and nontender, she has been able to eat. She has not had any diarrhea here for me to test.
White count is 14, there is a left shift, there is no other abnormal findings
Patient is 10 days post a medial patellofemoral ligament urinalysis shows some algae and protein, but no blood, bacteria, or leukocytes. Chest X-ray is clear, and lactate levels are normal. Current symptoms suggest a viral etiology; post-surgical
fever is unlikely. Will notify if cultures return positive. Patient advised to monitor symptoms and return if they worsen.
*Pulse Oximetry
SaO2: 97
Oxygen Mode of Delivery: Room air
Patient hypoxic: no (98)
*Critical Care Note
Total Time (30-74mins, 75-104mins- exclusive of procedures): Not Applicable
ED Attending Note
-
Portions of this chart may have been created with voice recognition software.� Occasional wrong word or��sound alike� substitutions may have occurred due to the inherent limitations of voice recognition software.
Discharge Plan
Departure
Patient Disposition: Home (Routine Discharge)
Date of Disposition: 03/06/25
Time of Disposition: 05:06
Patient with high blood pressure during this ER visit?: No
Condition: Fair
Covid-19: Not Applicable
Discharge Problem:
Chills
Instructions: Diarrhea in adults - ED discharge instructions
Prescriptions:
No Action
sertraline [Zoloft] 50 mg Tablet
50 mg PO DAILY
diazepam [Valium] 5 mg Tablet
5 mg PO PRN PRN (Reason: aura)
diclofenac potassium 50 mg Tablet
50 mg PO DAILY PRN (Reason: migraine)
ergocalciferol (vitamin D2) [Vitamin D2] 1,250 mcg (50,000 unit) Capsule
1,250 mcg PO WE
lamotrigine [Lamictal] 100 mg Tablet
100 mg PO DAILY
methylphenidate HCl [Concerta] 27 mg Tablet Extended Release 24hr
27 mg PO DAILY
hydrocodone-acetaminophen [Vicodin] 5-300 mg Tablet
1 tab PO PRN PRN (Reason: pain)
Vraylar 1.5 mg Capsule
1.5 mg PO DAILY
Qulipta 60 mg Tablet
60 mg PO DAILY
Referrals:
Fide Yost CRNP [Family Provider, General] - Follow up in 2-3 days
Activity Restrictions/Additional Instructions:
Your white count was mildly elevated but otherwise your testing was reassuring. Your chest x-ray was clear, your urine was negative, your lactic acid was normal we sent 2 sets of cultures just to be sure you do not have bacteria in your
bloodstream. Your incisions look well-healed at this point. And you are not having any additional symptoms to require testing however we did consider doing a CT scan
Of your belly due to the diarrhea but opted to hold on that for now. Should you get worsening diarrhea it needs to be tested with a stool culture and C. difficile testing as well as potentially a CT scan if you are having pain. Otherwise this
could be a viral syndrome. Make sure to follow-up with Dr. Hair, he should also look at your leg. It does look like there is no signs of infection at this point. Should you have any redness or drainage, severe worsening pain, high fever you
should return to the ER. Otherwise we will call you if the cultures are positive.
Interventions
Interventions:
*Risk Screen - Suicide Last Done: 03/05/25 22:03
*General Assessment Last Done: 03/05/25 22:11
*Neglect/Abuse Screening Last Done: 03/05/25 22:11
*ED- Fall Risk Assessment Last Done: 03/05/25 22:11
*ED COVID-19 Vaccine History Last Done: 03/05/25 22:11
*Nursing Disposition Last Done: 03/06/25 05:29
ED-Skin Assessment Last Done: 03/06/25 02:09
Discharge Date and Time
Discharge Date/Time: 03/06/25 05:30
Print Language: ICELANDIC
[2025-03-06 04:32] LABS: Urine Character Slightly Cloudy (Clear)
[2025-03-06 05:14] VITALS: BP 119/78
[2025-03-06 06:47] LABS: Urine Squamous Cell >30 /LPF (Few)
[2025-03-06 06:48] LABS: Urine Red Blood Cell None Seen /HPF (0-2)
== END 2025-03-06 05:30 | disposition home or self-care (01) ==
LOC: EMR 22:02
PROVIDERS: Emergency Medicine; Physician Assistant; EMERGENCY PHYSICIAN Student in an Organized Health Care Education/Training Program; FAMILY PHYSICIAN Nurse Practitioner
DX: R68.83 Chills (without fever) (principal); K21.9 Gastro-esophageal reflux disease without esophagitis; F41.9 Anxiety disorder, unspecified; F31.9 Bipolar disorder, unspecified; F17.290 Nicotine dependence, other tobacco product, uncomplicated
CPT/HCPCS: 99284; 71046; 80053; 81003; 81015; 83605; 85025; 86308; 87040; 87811

== ENCOUNTER → 2025-06-02 15:27 | Outpatient (REF) | payer OTHER, SELFPAY | LOC: HWRAD 15:27 | PROVIDERS: ATTENDING PHYSICIAN Chiropractor; FAMILY PHYSICIAN Nurse Practitioner | DX: M54.6 Pain in thoracic spine (principal); M53.2X7 Spinal instabilities, lumbosacral region; R10.20 Pelvic and perineal pain unspecified side | CPT/HCPCS: 72072; 72110; 72170 ==